=== PATIENT | male | born 1960 | race Caucasian/White ===

== ENCOUNTER → 2021-08-04 | Outpatient (CLI) | payer OTHER ==
[~2021-08-04] VITALS: Ht 170.2 cm; Wt 89.7 kg
[~2021-08-04] MED LIST: BENTYL 10 MG CA10 M1 PO; FLONASE INH; HYDROCHLOROTHIA25 M1 PO; LISINOPRIL20 MG PO; MOBIC15 MG PO; NEURONTIN 300M300 M2 PO; NEXIUM40 MG PO; NORCO5 PO; PROTONIX 20 MG20 MG PO; ZOCOR40 MG PO
[2021-08-04 11:14] VITALS: BP 150/90
--- NOTE | 2021-08-04 11:40 | NUR ---
Pain Clinic Assessment: 1. History of Osteoarthritis: NONE History of Rheumatoid Arthritis: NONE 2. Height: 5 ft. 7 in. 170.2 cm. Weight: 197.8 lb. oz. 89.722 kg. Patient's BMI: 31.0 3. Vital Signs: BP: 150/90 Pulse: 69 Resp: 20 Temp: 02 Sat: 99 ECG Mon: 4. Pain Intensity: 5 WITH MEDS 10 WITHOUT 5. Fall Risk: Dizziness: Needs help standing or walking: Fallen in the last 3 months: Fall risk comments: 6. Patient on Blood Thinner: None 7. History of Hypertension: Y 8. Opioid Therapy greater than 6 weeks: N Opiate Contract Signed: 9. Risk Assessment Tool Provided: 0-3 10. Functional Assessment Tool: 11. Recreational Drug Use: Never Drug Type: Tobacco Use: Never Smoker Tobacco Type: Amount or Packs/day: How Many Years: Alcohol Use: No Frequency: Quant:
== END ==
LOC: PAIN 07:01
PROVIDERS: ATTEND Anesthesiology Pain Medicine
DX: M51.16 Intervertebral disc disorders with radiculopathy, lumbar region (principal); I10 Essential (primary) hypertension; R20.2 Paresthesia of skin; M79.604 Pain in right leg; Z79.899 Other long term (current) drug therapy; Z88.8 Allergy status to other drugs, medicaments and biological substances

== ENCOUNTER → 2021-08-11 | Outpatient (CLI) | payer OTHER ==
[~2021-08-11] VITALS: Ht 170.2 cm; Wt 92.4 kg
[2021-08-11 13:17] VITALS: BP 146/90
--- NOTE | 2021-08-11 13:23 | NUR ---
Pain Clinic Assessment: 1. History of Osteoarthritis: NONE History of Rheumatoid Arthritis: NONE 2. Height: 5 ft. 7 in. 170.2 cm. Weight: 203.8 lb. oz. 92.443 kg. Patient's BMI: 31.9 3. Vital Signs: BP: 146/90 Pulse: 80 Resp: 18 Temp: 02 Sat: 98 ECG Mon: 4. Pain Intensity: 3 5. Fall Risk: Dizziness: N Needs help standing or walking: N Fallen in the last 3 months: N Fall risk comments: 6. Patient on Blood Thinner: None 7. History of Hypertension: Y 8. Opioid Therapy greater than 6 weeks: N Opiate Contract Signed: 9. Risk Assessment Tool Provided: 0-3 10. Functional Assessment Tool: 11. Recreational Drug Use: Never Drug Type: Tobacco Use: Never Smoker Tobacco Type: Amount or Packs/day: How Many Years: Alcohol Use: No Frequency: Quant:
== END | disposition home or self-care (01) ==
LOC: PAIN 11:04
PROVIDERS: ATTEND Anesthesiology Pain Medicine
DX: M54.16 Radiculopathy, lumbar region (principal); G89.29 Other chronic pain; Z98.890 Other specified postprocedural states; Z79.899 Other long term (current) drug therapy; Z88.8 Allergy status to other drugs, medicaments and biological substances